=== PATIENT | female | born 1950 | race Caucasian/White ===

== ENCOUNTER 2019-12-13 10:37 | Emergency (ER) | payer SELFPAY ==
[~2019-12-13] VITALS: Ht 149.9 cm; Wt 55.0 kg
--- NOTE | 2019-12-13 10:43 | NUR ---
PATIENT ARRIVES WITH DELORES FROM [place] FOR A CTA TO R/O A PE SECONDARY TO THIER FINDINGS OF SOB THAT BEGAN TODAY AND A DDIMER OF 600.
[2019-12-13] MEDS ORDERED: ESOM10SU PO (10:55)
[2019-12-13] MEDS ORDERED: METO50TA82 PO (10:56)
[2019-12-13] MEDS ORDERED: GABA600T7 PO (10:56)
[2019-12-13] MEDS ORDERED: TRAM100T33 PO (10:56)
[2019-12-13] MEDS ORDERED: OXYB-39 PO (10:56)
[2019-12-13] MEDS ORDERED: KETOROLAC 30 MG/1 ML IVPush ONE (11:00)
[2019-12-13] MEDS ORDERED: OMNIPAQUE 350 MG/ML, 75ML BOTTLE ONE (11:00)
[2019-12-13] MEDS ORDERED: METHOCARBAMOL 750 MG TABLET PO ONE (11:00)
--- NOTE | 2019-12-13 11:17 | NUR ---
PATIENT IN CT SCAN, WILL MEDICATE WHEN RETURNS.
[2019-12-13] MEDS ORDERED: KETOROLAC 30 MG/1 ML ONE (11:30)
[2019-12-13] MEDS ORDERED: PLEASE ENTER ALLERGIES MC SCH (11:30)
[2019-12-13] MEDS ORDERED: METHOCARBAMOL 750 MG TABLET ONE (11:30)
[2019-12-13 11:39] LABS: TROPONIN I < 0.015 ng/mL (0.000-0.045)
[2019-12-13 11:56] VITALS: BP 121/68
== END 2019-12-13 12:13 | disposition home or self-care (01) ==
LOC: ED 12:07
DX: R07.89 Other chest pain (principal); R94.31 Abnormal electrocardiogram [ECG] [EKG]; I10 Essential (primary) hypertension
CPT/HCPCS: 36415; 71275; 84484; 93005; 96374; 99285; J1885; Q9967

== ENCOUNTER → 2020-07-08 | Outpatient (CLI) | payer MEDICARE, OTHER ==
[~2020-07-08] MED LIST: ESOM10SU PO; GABA600T7 PO; METO50TA82 PO; OXYB-39 PO; REGADENOSON 0.4 MG/5 ML SYRINGE ONE; TRAM100T33 PO
== END | disposition home or self-care (01) ==
LOC: CVU 09:40
PROVIDERS: ATTEND Internal Medicine Cardiovascular Disease
DX: I35.1 Nonrheumatic aortic (valve) insufficiency (principal); R06.02 Shortness of breath; R07.9 Chest pain, unspecified; R60.9 Edema, unspecified; Z86.12 Personal history of poliomyelitis
CPT/HCPCS: 78452; 93017; 93970; A9502; J2785

== ENCOUNTER 2020-10-21 10:48 | Day surgery (SDC) | payer MEDICARE, OTHER ==
[~2020-10-21] VITALS: Ht 149.9 cm; Wt 67.7 kg
[~2020-10-21 10:48] MED LIST changes: -REGADENOSON 0.4 MG/5 ML SYRINGE ONE
[2020-10-21] MEDS ORDERED: LIDOCAINE 2%, 20ML ONE ×2 (11:25→12:30)
[2020-10-21] MEDS ORDERED: MIDAZOLAM 1 MG/ML, 5ML ONE (12:23)
[2020-10-21] MEDS ORDERED: FENTANYL PF 100 MCG/2ML ONE (12:23)
== END 2020-10-21 13:48 | disposition home or self-care (01) ==
LOC: CACL 10:48
PROVIDERS: ATTEND Internal Medicine Cardiovascular Disease
DX: Z45.09 Encounter for adjustment and management of other cardiac device (principal); I10 Essential (primary) hypertension
CPT/HCPCS: 33286; J2250; J3010